=== PATIENT | male | born 1960 | race Caucasian/White ===

== ENCOUNTER 2021-06-04 05:52 | Day surgery (SDC) | payer BC ==
[2021-05-31 09:32] VITALS: BMI 25.8
[~2021-06-04 05:52] MED LIST: ACETAMINOPHEN TAB 500 MG TAB PO PRN; DEXAMETHASONE SOD PHOSPHATE 4 MG/ML 1 ML VIAL IV ONE; HEPARIN SODIUM,PORCINE/PF 5,000 UNIT/0.5 ML SYRINGE SQ PRN; ONDANSETRON 4 MG/2 ML VIAL IVP ONE
[2021-06-04 06:33] LABS: Glucose,Whole Blood 104 mg/dL (75-99)
[2021-06-04] MEDS: LACTATED RINGERS 1,000 ML IV SCH ×2 (06:34→07:43)
[2021-06-04] MEDS ORDERED: HYDROmorphone 0.5 MG/0.5 ML SYRINGE IVP PRN (07:00)
[2021-06-04] MEDS ORDERED: GLYCOPYRROLATE 0.2 MG/ML 2 ML VIAL ONE ×2 (07:43)
[2021-06-04] MEDS ORDERED: fentaNYL (PF) 50 MCG/ML 2 ML AMP ONE (07:43)
[2021-06-04] MEDS ORDERED: PROPOFOL 10 MG/ML 20 ML VIAL IV ONE (07:43)
[2021-06-04] MEDS ORDERED: MIDAZOLAM 2 MG/2 ML VIAL ONE (07:43)
[2021-06-04] MEDS ORDERED: ROCURONIUM 10 MG/ML (5 ML VIAL) IV ONE (07:43)
[2021-06-04] MEDS ORDERED: NEOSTIGMINE 1 MG/ML 10 ML VIAL ONE (07:43)
[2021-06-04] MEDS ORDERED: SUCCINYLCHOLINE CHLORIDE 100 MG/5 ML SYR IV ONE (07:43)
[2021-06-04] MEDS ORDERED: KETOROLAC 15 MG/ML 1 ML VIAL ONE (07:43)
--- NOTE | 2021-06-04 07:44 | P.GSHP ---
History of Present Illness H&P Date: 06/04/21 Chief Complaint: Incisional hernia Patient here today for elective repair incisional hernia. Patient had previous incision at the umbilicus for laparoscopic hernia repair. This is at that location. Mild pain. Increasing in size. No nausea or vomiting. Past Medical History Past Medical History: Hearing Disorder / Deafness, Thyroid Disorder History of Any Multi-Drug Resistant Organisms: None Reported Past Surgical History: Hernia Repair Additional Past Surgical History / Comment(s): HERNIA REPAIR, SURGERY ON RIGHT FOREARM, Past Anesthesia/Blood Transfusion Reactions: No Reported Reaction Smoking Status: Never smoker - Past Family History Father Family Medical History: Cancer Medications and Allergies Home Medications Medication Instructions Recorded Confirmed Type Levothyroxine Sodium [Synthroid] 75 mcg PO DAILY 05/31/21 05/31/21 History Allergies Allergy/AdvReac Type Severity Reaction Status Date / Time Penicillins Allergy Rash/Hives Verified 06/04/21 06:16 Surgical - Exam Vital Signs Temp Pulse Resp BP Pulse Ox 97.0 F L 70 17 141/87 98 06/04/21 06:24 06/04/21 06:24 06/04/21 06:24 06/04/21 06:24 06/04/21 06:24 Physical exam: General: Well-developed, well-nourished HEENT: Normocephalic, sclerae nonicteric Abdomen: Nontender, nondistended, reducible hernia at previous umbilical incision site Extremities: No edema Neuro: Alert and oriented Results - Labs Abnormal Lab Results - Last 24 Hours (Table) 06/04/21 Range/Units 06:29 POC Glucose (mg/dL) 104 H (75-99) mg/dL Assessment and Plan (1) Incisional hernia Narrative/Plan: Will proceed with open repair reducible incisional hernia. Risks of bleeding, infection, recurrence, bladder and bowel injury, numbness, nerve injury were discussed with the patient. The patient understands and wishes to proceed. Current Visit: Yes Status: Acute Code(s): K43.2 - INCISIONAL HERNIA WITHOUT OBSTRUCTION OR GANGRENE SNOMED Code(s): 589023854
[2021-06-04] MEDS ORDERED: BUPIVACAIN-EPI 0.25%-1:200,000 30 ML VIAL SQ ONE ×2 (08:01→08:29)
[2021-06-04] MEDS ORDERED: LACTATED RINGERS 1,000 ML IV ONE (08:35)
[2021-06-04 08:55] VITALS: RESP 16; TEMP 96.8
--- NOTE | 2021-06-04 08:55 | P.OP ---
Date of Procedure: 06/04/21 Procedure(s) Performed: PREOPERATIVE DIAGNOSIS: Reducible incisional hernia POSTOPERATIVE DIAGNOSIS: Same PROCEDURE: Repair reducible incisional hernia with mesh SURGEON: Dr. Faye ANESTHESIA: General OPERATIVE PROCEDURE DETAILS: The patient was placed in the operating table in the supine position. The previous infraumbilical incision was re-incised. The subcutaneous tissues were dissected bluntly and with cautery. The hernia sac was identified. The umbilical attachments to the fascia were divided using electrocautery. The hernia sac was reduced back into the preperitoneal space. The defect in the fascia measured 1 x 2 cm The fat overlying the fascia was dissected. No additional defects were seen. The preperitoneal space was then dissected using blunt dissection and electrocautery. The 4.3 cm ventral ex mesh was placed beneath the fascia and sutured in place using trans-fascial 0 Et hibond sutures. The defect was closed using interrupted [id number] 0 Ethibond mattress sutures. The subcutaneous tissues were reapproximated using inverted 2-0 & 3-0 Vicryl sutures. The umbilicus was tacked back down to the fascia using a 2-0 Vicryl suture. The skin was closed using 4-0 Monocryl sutures. Skin glue and sterile dressings were then applied. HERNIA CHARACTERISTICS: Length: 2 cm Width: 1 cm Type: Incisional TYPE OF MESH USED: 4.3 cm ventral X LOCATION OF MESH: Preperitoneal sub-lay FIXATION: Interrupted 0 Ethibond sutures DISPOSITION: Stable to recovery room
[2021-06-04] MEDS ORDERED: ACETAMINOPHEN TAB 325 MG TAB PO SCH (09:00)
[2021-06-04 11:12] VITALS: BP 140/90; PULSE 69
[2021-06-04] MEDS ORDERED: IBUPROFEN 600 MG TAB PO SCH (12:00)
== END 2021-06-04 11:33 | disposition home or self-care (01) ==
LOC: OR 05:52
PROVIDERS: ATTEND Surgery
DX: K43.2 Incisional hernia without obstruction or gangrene (principal); E78.5 Hyperlipidemia, unspecified; K21.9 Gastro-esophageal reflux disease without esophagitis; E03.9 Hypothyroidism, unspecified; H91.90 Unspecified hearing loss, unspecified ear; M19.90 Unspecified osteoarthritis, unspecified site; Z98.890 Other specified postprocedural states; Z82.49 Family history of ischemic heart disease and other diseases of the circulatory system; Z81.8 Family history of other mental and behavioral disorders; Z79.890 Hormone replacement therapy; Z79.899 Other long term (current) drug therapy; Z88.0 Allergy status to penicillin
CPT/HCPCS: 49560; 49568; C1781; J2250; J1100; J2710; J0690; J2405; J3010; J1885; J0330; J2704; J1170; J1644

== ENCOUNTER → 2022-01-01 | Outpatient (CLI) | payer BC ==
--- NOTE | 2022-01-01 12:20 | XR ---
EXAMINATION TYPE: XR chest 2V DATE OF EXAM: 01/01/2022 COMPARISON: NONE HISTORY: Cough TECHNIQUE: Frontal and lateral views of the chest are obtained. FINDINGS: Suspected left upper lobe medial posterior nodule measuring up to [address] assessme nt. Grossly unremarkable lungs otherwise. No pleural effusion or pneumothorax. No cardiomegaly. Unremarka ble bony thoracic cage. IMPRESSION: Suspected left upper lobe medial posterior nodule as described above, for further CT assessment.
== END | disposition home or self-care (01) ==
LOC: RADXRMAIN 11:00
PROVIDERS: ATTEND Family Medicine
DX: R05.9 Cough, unspecified (principal)
CPT/HCPCS: 71046

== ENCOUNTER → 2022-01-19 | Outpatient (CLI) | payer BC ==
--- NOTE | 2022-01-19 09:36 | CT ---
EXAMINATION TYPE: CT chest w con DATE OF EXAM: 01/19/2022 COMPARISON: Recent chest radiograph of 01/01/2022 HISTORY: Chronic cough. CT DLP: 317.6 mGycm Automated exposure control for dose reduction was used. CONTRAST: CT scan of the chest is performed with IV Contrast, patient injected with 100ml mL of Isovue 300. FINDINGS: LUNGS: There is a calcified granuloma noted left upper lobe posterior medially. No additional pulmona ry nodules are seen. The lungs are grossly clear, there is no concerning parenchymal mass or nodule i dentified. There is no pleural effusion or pneumothorax seen. The tracheobronchial tree is patent. MEDIASTINUM: There are no greater than 1 cm hilar or mediastinal lymph nodes. No pericardial effusi on is seen. Thoracic aorta is of normal caliber. The heart is not enlarged. Small sliding-type hiata l hernia. UPPER ABDOMEN: No significant abnormality appreciated. OTHER: No additional significant abnormality is seen. IMPRESSION: There is a calcified granuloma noted left upper lobe posterior medially. No concerning pulmonary nodu les are evident.
== END | disposition home or self-care (01) ==
LOC: RADCTMAIN 08:31
PROVIDERS: ATTEND Family Medicine
DX: J84.10 Pulmonary fibrosis, unspecified (principal)
CPT/HCPCS: 71260; Q9967

== ENCOUNTER → 2022-07-26 | Outpatient (CLI) | payer BC ==
--- NOTE | 2022-07-26 14:56 | XR ---
EXAMINATION TYPE: XR shoulder limited RT DATE OF EXAM: 07/26/2022 COMPARISON: NONE HISTORY: 61-year-old male M2 5.511 TECHNIQUE: 3 views FINDINGS: AC joint appears intact. Subacromial space is preserved. No acute fracture, subluxation, or dislocati on. Visualized right hemithorax is clear. IMPRESSION: No acute osseous abnormality seen.
== END | disposition home or self-care (01) ==
LOC: RADXRMAIN 10:51
PROVIDERS: ATTEND Nurse Practitioner Family
DX: M25.511 Pain in right shoulder (principal)

== ENCOUNTER → 2023-05-29 | Outpatient (CLI) | payer BC ==
--- NOTE | 2023-05-29 11:08 | XR ---
EXAMINATION TYPE: XR knee complete RT DATE OF EXAM: 05/29/2023 COMPARISON: None HISTORY: Pain in right knee TECHNIQUE: 3 view right knee FINDINGS: Joint spaces are preserved. No joint effusion is evident. No acute fracture or dislocation is evident. Follow-up exam be performed 7-10 days from acute trauma for continued pain. IMPRESSION: 1. No acute osseous abnormality right knee.
== END | disposition home or self-care (01) ==
LOC: RADXRMAIN 10:07
PROVIDERS: ATTEND Family Medicine
DX: M25.561 Pain in right knee (principal)

== ENCOUNTER → 2023-08-29 | Outpatient (CLI) | payer BC ==
--- NOTE | 2023-08-29 13:52 | CA ---
Exercise Stress Test Report Name: Patrick Coleman Exam Date: 08/29/2023 11:44 Exam Location: [facility] Ht (in): 66 Wt (lb): 175 BSA: 1.89 Ordering Phys: Dustin Ovalle DO Referring Phys: Dustin Ovalle DO Technologist: GISELA MCGUIRE Age: 62 Gender: M : 1960 Procedure CPT: Indications: R53.81 OTHER MALAISE ICD-10 Codes: Patient History: AUGUSTINA, FAMILY HX Medications: LEVOTHYROXINE, TESTOSTERONE , CITALOPRAM, PANTOPRAZOLE Meds past 24 hrs: Pretest Chest Pain: STRESS TEST Nino Protocol Exercise Duration (min:sec): 07:[address] Depressions (mm): Angina Score: Hurd Score: Resting HR (bpm): 70 Peak HR (bpm): 135 Resting BP (mmHg): 136 / 86 Peak BP (mmHg): 201 / 76 MPHR: 157 Target HR: 133 % MPHR: 86 METS: 8.5 Total Dose: Peak Dose: Atropine: Double Product: 85931 BP Response: Stress Termination: TARGET HR/MAX EXERTION Stress Symptoms: NO SYMPTOMS Stress Summary: ECG ANALYSIS Resting ECG: Normal sinus rhythm, normal ECG, heart rate 69 bpm Stress ECG: No significant ST-T wave changes diagnostic for ischemia by ST segment analysis CONCLUSIONS Nonischemic ECG response to treadmill exercise Good exercise tolerance achieving 8.5 METS Somewhat hypertensive response to exercise. Normal heart rate response and clinical response to exercise Overall normal treadmill stress test Dr Reece Cordon (Electronically Signed) Final Date: 29 August 2023 13:51
== END | disposition home or self-care (01) ==
LOC: RADNMMAIN 10:48
PROVIDERS: ATTEND Family Medicine
DX: R53.81 Other malaise (principal); R03.0 Elevated blood-pressure reading, without diagnosis of hypertension
CPT/HCPCS: 93017